=== PATIENT | male | born 1950 | race Caucasian/White ===

== ENCOUNTER 2021-08-24 10:39 | Inpatient (IN) | payer MEDICARE, OTHER ==
[~2021-08-24] VITALS: Ht 172.7 cm; Wt 70.3 kg
[2021-08-24 10:55] VITALS: BP 189/79
[2021-08-24] MEDS ORDERED: SILALITE 0.1%1 EACH TOP (11:01)
[2021-08-24] MEDS ORDERED: XALATAN2.5 ML OPHTHALMIC (11:02)
[2021-08-24] MEDS ORDERED: KETOCONAZOLE15 GM TOP (11:02)
[2021-08-24] MEDS ORDERED: LISINOPRIL-HCT1 EAC1 PO (11:03)
[2021-08-24] MEDS ORDERED: VITAMIN B-121000 MC2 PO (11:03)
[2021-08-24] MEDS ORDERED: CHILDREN'S ASPI81 M1 PO (11:03)
[2021-08-24] MEDS ORDERED: TERBINAFINE HC250 MG PO (11:04)
[2021-08-24] MEDS ORDERED: ZOCOR 10 MG TAB10 MG PO (11:04)
[2021-08-24] MEDS ORDERED: DILTIAZEM 24HR120 M1 PO (11:05)
[2021-08-24 11:15] LABS: HEMATOCRIT 45.8 % (42.0-52.0); HEMOGLOBIN 15.4 gm/dL (14.0-18.0); MCH 32.3 pg (26.0-34.0); MCHC 33.6 g/dL (28.0-37.0); MCV 96.1 fL (80.0-100.0); MPV 8.5 fl. (7.2-11.1); NUCLEATED RBCS 0 /100WBC; PLATELET COUNT* 227 thou/uL (150-400); RBC 4.76 mil/uL (4.50-6.00); RDW-CV 12.9 % (10.5-14.5); WBC 14.8 thou/uL (4.0-11.0)
[2021-08-24 11:24] LABS: CALCIUM 9.2 mg/dL (8.5-10.1); CREATININE 1.1 mg/dL (0.6-1.3); POTASSIUM 3.8 mmol/L (3.5-5.1)
[2021-08-24 11:29] LABS: ALBUMIN 4.1 g/dL (3.4-5.0); TOTAL BILIRUBIN 0.6 mg/dL (<0.1-1.0); TOTAL PROTEIN 7.6 g/dL (6.4-8.2)
[2021-08-24 12:03] LABS: ABSOLUTE LYMPHOCYTES 0.9 thou/uL (0.8-5.3); ABSOLUTE NEUTROPHILS 13.9 thou/uL (1.6-8.1)
[2021-08-24 12:04] LABS: ANISOCYTOSIS 1+; PLATELET ESTIMATE ADEQUATE; POIKILOCYTOSIS 1+
[2021-08-24 14:41] LABS: URINE BILIRUBIN NEGATIVE (Negative); URINE BLOOD NEGATIVE (Negative); URINE CLARITY CLEAR; URINE COLOR YELLOW; URINE GLUCOSE-RANDOM NEGATIVE (Negative); URINE KETONES TRACE (Negative); URINE LEUKOCYTES-REFLEX NEGATIVE (Negative); URINE NITRITE-REFLEX NEGATIVE (Negative); URINE PROTEIN NEGATIVE (Negative); URINE UROBILINOGEN 0.2 E.U./dl (0.2-1.0)
[2021-08-24 15:13] VITALS: BP 114/60
--- NOTE | 2021-08-24 15:55 | NUR ---
PT ARRIVED TO TELE FLOOR. SETTLED, ORIENTED TO ROOM. PT DENIES PAIN. ADMISSION COMPLETE. PT STATES HE WISHES FOR HIS TO BRING HIS HOME MEDS R/T COST.
[2021-08-24 21:04] VITALS: BP 125/59
[2021-08-24 23:42] VITALS: BP 102/51
[2021-08-25 04:11] VITALS: BP 107/56
--- NOTE | 2021-08-25 07:02 | NUR ---
PT IS ABLE TO COMMUNICATE HIS NEEDS TO STAFF EFFECTIVELY. HE HAS DENIED THE NEED FOR PAIN MEDICATION UP TO THIS TIME. PT HAS REFUSED TO TAKE CERTAIN MEDS. LIKELY DISCHARGE LATER TODAY.
[2021-08-25 07:40] VITALS: BP 109/56
[2021-08-25 10:03] LABS: ABSOLUTE LYMPHOCYTES 0.6 thou/uL (0.8-5.3); ABSOLUTE MONOCYTES 0.7 thou/uL (0.0-1.2); ABSOLUTE NEUTROPHILS 18.1 thou/uL (1.6-8.1); BASOPHILS 0.1 %; HEMATOCRIT 39.6 % (42.0-52.0); MCH 31.7 pg (26.0-34.0); MCHC 33.1 g/dL (28.0-37.0); MCV 95.7 fL (80.0-100.0); MONOCYTES 3.4 %; MPV 8.6 fl. (7.2-11.1); NUCLEATED RBCS 0 /100WBC; PLATELET COUNT* 178 thou/uL (150-400); POLYS 93.5 %; RBC 4.14 mil/uL (4.50-6.00); RDW-CV 13.1 % (10.5-14.5); WBC 19.4 thou/uL (4.0-11.0)
[2021-08-25 10:04] LABS: HEMOGLOBIN 13.1 gm/dL (14.0-18.0)
[2021-08-25 10:23] LABS: ALBUMIN 3.3 g/dL (3.4-5.0); CALCIUM 8.6 mg/dL (8.5-10.1); POTASSIUM 3.9 mmol/L (3.5-5.1); TOTAL BILIRUBIN 0.4 mg/dL (<0.1-1.0); TOTAL PROTEIN 6.4 g/dL (6.4-8.2)
--- NOTE | 2021-08-25 10:29 | EKG ---
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1950 Requested By: Jefferson Garcia Order Number: [id number] MD: Fredrick Leon Measurements Intervals [place] Rate: 121 P: 46 ME: 162 QRS: -43 QRSD: 80 T: 86 QT: 298 QTc: 423 Interpretive Statements Sinus tachycardia Probable left atrial enlargement Left axis deviation Baseline wander in lead(s) V1,V2,V4 No previous ECG available for comparison Electronically Signed On 08-25-2021 10:29:36 CDT by Fredrick Leon [email or web address] <ELECTRONICALLY SIGNED> By: Fredrick Leon MD, [facility] 08/25/21 1029 1109 1109 Fredrick Leon MD, [facility] /EPI
--- NOTE | 2021-08-25 10:30 | EKG ---
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1950 Requested By: Jefferson Garcia Order Number: [id number] MD: Fredrick Leon Measurements Intervals [place] Rate: 68 P: 17 [place]: 142 QRS: -42 QRSD: 110 T: 35 QT: 507 QTc: 540 Interpretive Statements Sinus rhythm Incomplete RBBB and LAFB Abnormal R-wave progression, early transition Prolonged QT interval Baseline wander in lead(s) V1 Compared to ECG 08/24/2021 11:09:26 Left anterior fascicular block now present Incomplete right bundle-branch block now present Prolonged QT interval now present Sinus tachycardia no longer present Electronically Signed On 08-25-2021 10:30:19 CDT by Fredrick Leon [email or web address] <ELECTRONICALLY SIGNED> By: Fredrick Leon MD, [facility] 08/25/21 1030 1129 1129 Fredrick Leon MD, [facility] /EPI
--- NOTE | 2021-08-25 10:32 | NUR ---
ASSUMED CARE OF PT AT 0730. PT A&0X4, VERY GRUMPY, STATING, "I'M WAITING FOR MY TO GET HERE SO I CAN GET DRESSED AND LEAVE, I HAVENT HAD ANY SLEEP, PEOPLE KEEP COMING INTO MY ROOM, I NEED TO BE HOME". PT DENIES ANY PAIN OR SHORTNESS OF BREATH. REFUSED MOST MORNING MEDICATIONS. EDUCATION GIVEN. PT WILLING TO TAKE CARDIZEM AND ASPIRIN. TRACING SR/ST ON THE SECURITY OFFICER. CURRENTLY AT BEDSIDE AT THIS TIME. IVF DISCONTINUED PER EMAR. AM ASSESSMENT CHARTED. MEDS PER MAR. HOURLY ROUNDING OBSERVED. BED IN LOW POSITION. CALL LIGHT WITHIN REACH. WILL CONTINUE PLAN OF CARE.
[2021-08-25] MEDS ORDERED: CEPHALEXIN500 MG PO (11:58)
--- NOTE | 2021-08-25 12:07 | NUR ---
CM ASSESSMENT: PT A&O, INDEPENDENT WITH ADL'S, ACTIVE AND DRIVES. PT RESIDES AT HOME WITH SPOUSE. PT USES 0 DME. PT HAS 0 HX OF HH OR SNF. NO CM D/C PLANNING NEEDS ANTICIPATED. CM WILL REMAIN AVAILABLE TO ASSIST AND FOLLOW NEEDED.
[2021-08-25 12:27] VITALS: BP 109/56
--- NOTE | 2021-08-25 14:21 | NUR ---
PT HAD BILATERAL UPPER AND LOWER VENOUS ULTRASOUNDS-REFER TO RESULTS. OK FOR DISCHARGE. DISCHARGE ORDERS RECEIVED. DISCHARGE INSTRUCTIONS, CARE NOTES, E SCRIPTS AND FOLLOW UP APPTS GIVEN TO PT. PT COMMUNICATES UNDERSTANDING OF DISCHARGE TEACHING. IV AND LAST MODEL MAKER REMOVED. PT DISCHARGED WITH ALL BELONGINGS AND PAPERWORK VIA WHEELCHAIR WITH NURSING STAFF TO SPOUSE OWN PERSONAL VEHICLE.
== END 2021-08-25 14:23 | disposition home or self-care (01) | DRG 872 ==
LOC: M.ERS 10:39 → M.TBA-ER 13:22 → M.2W 13:22
PROVIDERS: Internal Medicine; Physician Assistant; ADMIT Internal Medicine; ATTEND Internal Medicine
DX: A41.9 Sepsis, unspecified organism (principal); B49 Unspecified mycosis; I10 Essential (primary) hypertension; Z79.899 Other long term (current) drug therapy; Z20.822 Contact with and (suspected) exposure to COVID-19; F17.210 Nicotine dependence, cigarettes, uncomplicated; Z82.49 Family history of ischemic heart disease and other diseases of the circulatory system; Z98.52 Vasectomy status; I95.9 Hypotension, unspecified